=== PATIENT | female | born 1985 | race Caucasian/White ===

== ENCOUNTER 2023-07-15 13:42 | Observation (INO) ==
[2023-07-15] MEDS: MoRPHine SULFATE 10 MG/ML CARP/VIAL IM STA (14:06)
--- NOTE | 2023-07-15 14:08 | History & Physical Report ---
Date of Service July 15, 2023 Assessment & Plan (1) Right renal stone: Plan: Patient's clinical presentation most c/w R stone. Will get labs, imaging. Obstetric causes of pain unlikely as unilateral presentation, pain waves do not correlate with contractions, and no current evidence of PTL or abruption. Offered IM morphine for relief of acute, extreme pain without awaiting IV placement, and patient accepts. IV also to be established for hydration and ongoing pain management needs. History of Present Illness Primary Care Provider: Emigdio Tirado MD 37yo with prior term , currently at 22w5d with healthy SIUP. Presents with 1.5 hours prior acute onset of R mid back to flank pain, radiating around her side towards the front. Although it baselines at a 5/10 she then gets "waves" or "spikes" of pain to a 10/10, and is crying on arrival with statements that this pain is way worse than contractions with her previous . At its peak this is the worst pain of her life. She has no timeable contractions (her peaks of pain are irregular and unpredictable) and no VB, no LOF. FM present. Has not had prior renal or gall stones, has not seen hematuria. Currently the wait in our ER is quite long, and patient was therefore brought directly to L&D despite likely being a nonobstetric issue, in order to expedite workup and treatment. Allergies Allergy/AdvReac Type Severity Reaction Status Date / Time amoxicillin Allergy Intermediate SWELLING, Verified 06/27/23 15:56 HIVES cefprozil Allergy Intermediate RASH Verified 06/27/23 15:56 cefuroxime Allergy Intermediate RASH Verified 06/27/23 15:56 clavulanic acid Allergy Intermediate SWELLING, Verified 06/27/23 15:56 HIVES Penicillins Allergy Intermediate Hives Verified 06/27/23 15:56 tuberculin, purified protein Allergy Intermediate swelling Verified 06/27/23 15:56 deriva fexofenadine AdvReac Intermediate dizziness Verified 06/27/23 15:56 BETALACTAMASEIN Allergy Intermediate SWELLING, Uncoded 06/27/23 15:56 HIVES Home Medications Medication Instructions Recorded Confirmed Type PNV 153-FA 400 mcg-om3 35 mg-dha 1 tab PO DAILY 06/08/23 06/27/23 History 25 mg-epa 5 mg-fish oil chew tablet ( Gummies) levothyroxine 50 mcg tablet 50 mcg PO DAILYBB 06/08/23 06/27/23 History albuterol sulfate 90 mcg/actuation 1 inh inhalation DIRECTED PRN 06/15/23 06/27/23 History aerosol inhaler Shortness Of Breath Or Wheezing omeprazole 20 mg capsule,delayed 20 mg PO BID 06/15/23 06/27/23 History release Past Med/Surg History Medical History Psoriasis Eczema History of chicken pox No acute medical problems Surgical History S/P section S/P myringotomy with insertion of tube S/P wisdom tooth extraction Family History Grandfather (Paternal) Diabetes Uncle Heart disease maternal Mother Hypertension Hypothyroid Father Dyslipidemia Denies family history of Ovarian cancer Breast cancer Colorectal cancer Social History Smoking Status: Never smoker Do You Dip or Chew Tobacco: No; Preferred Language: Greenlandic marital status: Single marital status details: david Ellis (37) [phone] Current Living Situation: Family and Significant Other Current Living Situation Comment: lives with fob, son, no pets current occupational status: 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 CVA +++TTP on R side, patient states this exactly reproduces her worst pain. Skin: Patient is diaphoretic c/w stated pain level. Genitourinary: FHT AGA per RN Mcgu[facility] [place] quiet with maternal movement artifact Palpation of abdomen during wave of peak pain shows uterine tone is low Cvx: cl/th/hi No VB or LOF evident PG Care Time/CCT Total # of Minutes Spent Total Time Spent with Patient: Total time spent is greater than 50% in coordination of care (as documented) at patient's floor/unit and/or counseling patient: Coding Level of Care Code None Diagnoses Right renal stone N20.0
[2023-07-15] MEDS: SODIUM CHLORIDE 0.9% 1,000 ML IV SCH ×2 (14:14→19:03)
[2023-07-15 14:21] LABS: Basophils # (auto) 0.03 K/uL (0.00-0.20); Basophils % (auto) 0.2 %; Eosinophils % (auto) 0.7 %; Hematocrit (blood only) 37.5 % (37.0-47.0); Hemoglobin 12.5 g/dl (12.0-16.0); Immature Granulocytes # (auto) 0.11 K/uL (0.01-0.20); Immature Granulocytes % (auto) 0.7 %; Lymphocytes # (auto) 1.56 K/uL (1.20-3.40); Lymphocytes % (auto) 10.4 %; Mean Corpuscular Hemoglobin 31.2 pg (25.0-34.0); Mean Corpuscular Hgb Conc 33.3 g/dL (32.0-36.0); Mean Corpuscular Volume 93.5 fL (80.0-100.0); Mean Platelet Volume 9.8 fL (9.4-12.4); Monocytes # (auto) 0.74 K/uL (0.11-0.59); Monocytes % (auto) 4.9 %; Neutrophils # (auto) 12.53 K/uL (1.40-6.50); Neutrophils % (auto) 83.1 %; Platelet Count 245 K/uL (130-400); RDW Coefficient of Variation 13.4 % (11.5-14.5); RDW Standard Deviation 45.7 fL (36.4-46.3); Red Blood Count 4.01 M/uL (4.20-5.40); White Blood Count 15.07 K/ul (4.8-10.8)
[2023-07-15 14:30] LABS: Appearance Urine Clear (Clear); Bacteria Urine Automated Negative (Negative); Bilirubin Urine Negative (Negative); Blood Urine Trace (Negative); Color Urine Yellow; Epithelial Cell Urine Auto >30 /lpf (0-5); Glucose Urine UA Negative (Negative); Ketones Urine Trace (Negative); Leukocyte Esterase Urine Negative (Negative); Nitrite Urine Negative (Negative); Protein Urine Negative (Negative); RBC Urine Automated 0-4 /hpf (0-4); Specific Gravity Urine 1.023 (1.000-1.030); Urobilinogen Urine Negative (Negative); pH Urine 5.5 (4.5-7.5)
[2023-07-15 14:37] LABS: Albumin Globulin Ratio 1.1 (0.9-2); Albumin Level 3.7 gm/dl (3.4-5.0); BUN Creatinine Ratio 14.7 (10-20); Bilirubin,Total 0.5 mg/dl (0.2-1.0); Calcium 8.9 mg/dl (8.6-10.3); Creatinine Clr Calc Pharmacy 109.2 ml/min; Est GFR (African American) 119.7 ml/min; Est GFR (Non-African American) 103.3 ml/min; Globulin 3.3 gm/dl (2.5-4.0); Potassium 3.5 mmol/L (3.5-5.1)
[2023-07-15] MEDS: ONDANSETRON INJ 2 MG/ML 2 ML VIAL ONE (15:48)
[2023-07-15] MEDS: ACETAMINOPHEN 325 MG TAB PO PRN (16:05)
--- NOTE | 2023-07-15 16:09 | Ultrasound Report ---
ULTRASOUND KIDNEYS AND BLADDER CLINICAL HISTORY: Right flank pain. . COMPARISON STUDY: No priors TECHNIQUE: Real-time, grayscale, and color flow sonography of the kidneys and bladder is performed. I mages are reviewed in the transverse and longitudinal planes. FINDINGS: Kidneys: The kidneys are normal in size and echotexture. The right kidney measures 13.5 x 5.2 x 4.5 c m and the left kidney measures 13.7 x 5.6 x 5.3 cm. There is mild right-sided hydronephrosis. No hydr onephrosis is seen on the lateral. No shadowing renal calculi are identified. There is no sonographic evidence of contour deforming renal mass lesion. No perinephric fluid is identified. Bladder: The bladder is normal in appearance. Bilateral ureteral jets were seen. Pelvis: There is a single live intrauterine gestation with a heart rate of 167 bpm. IMPRESSION: 1. There is mild right-sided hydronephrosis. No shadowing calculi are identified and a right ureteral jet was seen. An obstructing ureteral stone cannot be excluded. This could also be related to mass e ffect from the gravid uterus. 2. No hydronephrosis is seen on the left. 3. The bladder is normal as imaged. ACT 112: Negative or not required by law. Electronically signed by: Reed Castro M.D. 07/15/2023 4:08 PM
--- NOTE | 2023-07-15 16:43 | Obstetrical Progress Note ---
Date of Service July 15, 2023 Assessment & Plan (1) Right renal stone: Plan: patient with reassuring obstetric findings. Clinical impression of R renal colic. Both her presentation and her labs are highly suspicious for stone, but a stone cannot be demonstrated thus far using ultrasound modality. Patient currently declines CT to further demonstrate or rule out stone. There are minimal concerns at this time for UTI, Gallstone or Cholelithia sis/cholecystis, obstetric concern, nor bowel-related etiology of her pain. Obstruction of the R ureter cannot be r/o based on the tests done so far, but suspicion of this is currently low as the hydronephrosis is mild and her pain has been manageable with appropriate medication doses. We will keep her inpatient overnight for observation. So long as she does not develop signs or symptoms of another condition, and so long as her pain is manageable, the diagnosis will remain presumed R ureteral stone without obstruction. The goal will be to transition to outpatient management with PO percocet and aggressive oral hydration. Patient is going to strain her urine. She is aware we have only a presumptive diagnosis, but declines the definitive diagnostic study for now due to the radiation exposure inherent with that modality. CT will be re-offered in the event that clinical concerns for obstruction arise, or that the diagnosis seems less clear with passage of time. Subjective Patient with improvement of pain after morphine from 10/10 to 3/10. Eventually worsened back to a 5/10 and received tylenol as it was too soon for more narcotic, and she did well with the tylenol. Back to a 3/10 now and says if it were like this all the time she'd be fine, she just fears the peaks of severe pain. Additional history obtained/confirmed: Patient denies fevers or chills, has had no recent bowel habit changes, no upper abdominal pain, no history of gallstones, no recent large or fatty food ingestions. Today she ate a banana an d a cup of coffee prior to the onset of her pain and her presentation to the hospital. The pain hit her "like lightning, out of the blue" and came in peaks of varying durations. Right now she says she is in between peaks and has a tolerable level of pain. She mentions a few times that when she does get the pain it is very sharp and located in one specific spot on her R side, pointing to a spot on her flank. Labs and imaging reviewed, and patient made aware of her results. 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 Patient with mild leukocytosis and L shift, normal creatinine, normal LFT's. Her UA shows trace blood and ketones without bacteria nor nitrites/LE. The ultrasound shows mild R hydronephrosis without visible stone, and ureteral jet noted but obstruction is nevertheless still a possibility. I also called Dr. Sanches as the on-call urologist to run the above findings by him. He supports that her WBC/UA, symptoms, and imaging could all be consistent with a ureteral stone, and that ultrasound has low sensitivity for these during when the ureteral course is hidden behind the uterus. Her pain pattern and US yield high clinical suspicion. The imaging modality required to truly identify a stone would be a noncontrast CT. In the event that a stone is confirmed, the current treatment offerings at [facility] are essentially limited to hydration and pain management to pass the stone; surgical interventions for stone during generally require transfer to a higher level of care. I discussed this with the patient, and at this time she is hesitant to undergo CT to clarify the presence and location of a stone due to the radiation exposure to her fetus. Physical Exam Physical Exam: Sitting back / resting on the bed, no longer bracing herself on her hands. No longer diaphoretic. Able to speak with normal pace and tone. Remains gravid AGA. Has been straining urine, nothing caught yet. Results & Data Vital Signs (Past 12 Hours) Vital Signs Temp Pulse Resp BP 07/15/23 14:26 68 109/72 07/15/23 14:05 97.9 F 20 158/60 H 07/15/23 13:48 71 07/15/23 13:47 20 07/15/23 13:47 97.9 F 20 158/60 H PG Care Time/CCT Total # of Minutes Spent Total Time Spent with Patient: Total time spent is greater than 50% in coordination of care (as documented) at patient's floor/unit and/or counseling patient: Coding Level of Care Code None Diagnoses Right renal stone N20.0
[2023-07-15] MEDS ORDERED: ONDANSETRON INJ 2 MG/ML 2 ML VIAL IV PRN (17:12)
[2023-07-15] MEDS ORDERED: oxyCODONE/ACETAMINOPHEN 5mg/325mg TAB PO PRN (17:15)
[2023-07-15] MEDS ORDERED: MoRPHine SULFATE 2 MG/ML CARP IV PRN (17:16)
[2023-07-15] MEDS: ACETAMINOPHEN 500 MG TAB ONE (17:23)
[2023-07-15] MEDS: oxyCODONE/ACETAMINOPHEN 5mg/325mg TAB PO PRN (18:43)
[2023-07-15] MEDS ORDERED: Nursing to Pharmacy Communication SCH (18:45)
[2023-07-15] MEDS: PANTOprazole 40 MG TAB PO SCH (20:18)
[2023-07-16] MEDS: LEVOTHYROXINE SODIUM 50 MCG TABLET PO SCH (06:06)
[2023-07-16 06:38] LABS: Basophils # (auto) 0.03 K/uL (0.00-0.20); Basophils % (auto) 0.3 %; Eosinophils % (auto) 1.9 %; Hematocrit (blood only) 30.2 % (37.0-47.0); Hemoglobin 10.2 g/dl (12.0-16.0); Immature Granulocytes # (auto) 0.05 K/uL (0.01-0.20); Immature Granulocytes % (auto) 0.5 %; Lymphocytes # (auto) 1.93 K/uL (1.20-3.40); Lymphocytes % (auto) 18.3 %; Mean Corpuscular Hemoglobin 31.5 pg (25.0-34.0); Mean Corpuscular Hgb Conc 33.8 g/dL (32.0-36.0); Mean Corpuscular Volume 93.2 fL (80.0-100.0); Mean Platelet Volume 10.3 fL (9.4-12.4); Monocytes # (auto) 0.79 K/uL (0.11-0.59); Monocytes % (auto) 7.5 %; Neutrophils # (auto) 7.55 K/uL (1.40-6.50); Neutrophils % (auto) 71.5 %; Platelet Count 202 K/uL (130-400); RDW Coefficient of Variation 13.8 % (11.5-14.5); RDW Standard Deviation 46.5 fL (36.4-46.3); Red Blood Count 3.24 M/uL (4.20-5.40); White Blood Count 10.55 K/ul (4.8-10.8)
[2023-07-16 07:11] LABS: Appearance Urine Turbid (Clear); Bacteria Urine Automated Negative (Negative); Bilirubin Urine Negative (Negative); Blood Urine Negative (Negative); Cast Urine Automated 0 /lpf (0-5); Color Urine Yellow; Glucose Urine UA Negative (Negative); Ketones Urine Negative (Negative); Leukocyte Esterase Urine Negative (Negative); Nitrite Urine Negative (Negative); Protein Urine Negative (Negative); RBC Urine Automated 0-4 /hpf (0-4); Specific Gravity Urine 1.011 (1.000-1.030); Urobilinogen Urine Negative (Negative); WBC Urine Automated 0 /hpf (0-5)
--- NOTE | 2023-07-16 08:26 | Obstetrical Progress Note ---
Date of Service July 16, 2023 Assessment & Plan (1) Right renal stone: Plan: Clinically dx with passing of R renal stone. Likely stone is now in bladder given the descending location and then resolution of pain without passage of visible stone yet. Continue aggressive hydration at home. Received IV fluids here and has hemodilutional changes, but likely genuine improvement in WBC Urinalysis this AM shows resolution of previously-seen microscopic hematuria Continue routine PNC. Admission and Anticipated Discharge Date Admission Date: July 15, 2023 Subjective 37yo at 22w6d with presumed R renal stone. No OB c/o. Overnight the patient's pain moved down along the R flank into the R groin and then disappeared. Has not required narcotic since yesterday late evening. Aware that stone is likely in bladder and may yet pass, with additional pain, so is willing to have Rx for percocet prn. Doing well this morning and feels ready for D/C. Physical Exam Physical Exam: In NAD, talking with friend, sitting semi-sorensen. Results & Data Vital Signs (Past 12 Hours) Vital Signs Temp Pulse Resp BP Pulse Ox O2 Del Method 07/16/23 07:45 98.2 F 73 16 119/74 98 Room Air 07/16/23 02:58 98.2 F 74 18 97/64 L 97 Room Air 07/15/23 22:58 98.2 F 71 18 100/63 98 Room Air Laboratory Results Laboratory Results - last 24 hr 07/15/23 07/15/23 07/16/23 13:59 Unknown 06:01 WBC 15.07 H 10.55 RBC 4.01 L 3.24 L Hgb 12.5 10.2 L Hct 37.5 30.2 L MCV 93.5 93.2 MCH 31.2 31.5 MCHC 33.3 33.8 RDW Std Deviation 45.7 46.5 H RDW Coeff of Nuno 13.4 13.8 Plt Count 245 202 MPV 9.8 10.3 Immature Gran % (Auto) 0.7 0.5 Neut % (Auto) 83.1 71.5 Lymph % (Auto) 10.4 18.3 Hawkins % (Auto) 4.9 7.5 Eos % (Auto) 0.7 1.9 Baso % (Auto) 0.2 0.3 Neut # (Auto) 12.53 H 7.55 H Lymph # (Auto) 1.56 1.93 Hawkins # (Auto) 0.74 H 0.79 H Eos # (Auto) 0.10 0.20 Baso # (Auto) 0.03 0.03 Immature Gran # (Auto) 0.11 0.05 Sodium 136 Potassium 3.5 Chloride 106 Carbon Dioxide 20 L Anion Gap 10 BUN 11 Creatinine 0.75 Est Cr Clr Drug Dosing 109.2 Est GFR ( Amer) 119.7 Est GFR (Non-Af Amer) 103.3 BUN/Creatinine Ratio 14.7 Glucose 85 Calcium 8.9 Total Bilirubin 0.5 AST 19 ALT 26 Alkaline Phosphatase 54 Total Protein 7.0 Albumin 3.7 Globulin 3.3 Albumin/Globulin Ratio 1.1 Urine Color Yellow Urine Appearance Clear Urine pH 5.5 Ur Specific [place] 1.023 Urine Protein Negative Urine Glucose (UA) Negative Urine Ketones Trace H Urine Blood Trace H Urine Nitrite Negative Urine Bilirubin Negative Urine Urobilinogen Negative Ur Leukocyte Esterase Negative Urine WBC (Auto) 1-5 Urine RBC (Auto) 0-4 U Hyaline Cast (Auto) 1-5 U Epithel Cells (Auto) >30 H Urine Bacteria (Auto) Negative 07/16/23 06:30 WBC RBC Hgb Hct MCV MCH MCHC RDW Std Deviation RDW Coeff of Nuno Plt Count MPV Immature Gran % (Auto) Neut % (Auto) Lymph % (Auto) [place] % (Auto) Eos % (Auto) Baso % (Auto) Neut # (Auto) Lymph # (Auto) Hawkins # (Auto) Eos # (Auto) Baso # (Auto) Immature Gran # (Auto) Sodium Potassium Chloride Carbon Dioxide Anion Gap BUN Creatinine Est Cr Clr Drug Dosing Est GFR ( Amer) Est GFR (Non-Af Amer) BUN/Creatinine Ratio Glucose Calcium Total Bilirubin AST ALT Alkaline Phosphatase Total Protein Albumin Globulin Albumin/Globulin Ratio Urine Color Yellow Urine Appearance Turbid A Urine pH 7.0 Ur Specific [place] 1.011 Urine Protein Negative Urine Glucose (UA) Negative Urine Ketones Negative Urine Blood Negative Urine Nitrite Negative Urine Bilirubin Negative Urine Urobilinogen Negative Ur Leukocyte Esterase Negative Urine WBC (Auto) 0 Urine RBC (Auto) 0-4 U Hyaline Cast (Auto) 0 U Epithel Cells (Auto) 5-10 H Urine Bacteria (Auto) Negative PG Care Time/CCT Total # of Minutes Spent Total Time Spent with Patient: Total time spent is greater than 50% in coordination of care (as documented) at patient's floor/unit and/or counseling patient: Coding Level of Care Code None Diagnoses Right renal stone N20.0
== END 2023-07-16 10:40 | disposition home or self-care (01) ==
LOC: 4E2 13:42 → OPB 13:42 → 4S1 13:47 → 4E2 18:49

== ENCOUNTER 2023-11-10 08:50 | Inpatient (IN) ==
--- NOTE | 2023-10-25 16:08 | Anesthesiology Consultation ---
Date of Service October 25, 2023 Assessment & Plan (1) Encounter for pre-operative examination: Infectious disease screening: Per assessment on 10/25/23: No known infectious disease contacts or current infectious disease symptoms. No noted recent Covid positive test result. Chart Review Chart Review: order entry technician initiated History Surgery Operation Date: 11/10/23 10:05 Proposed Procedures p Section (Delivery of Baby Through Abdominal Incision) - America Mackenzie MD, FACOG s with Bilateral Tubal Ligation - America Mackenzie MD, FACOG Height/Weight Height: 5 ft 1 in Weight: 100.244 kg Allergies Allergy/AdvReac Type Severity Reaction Status Date / Time bee venom protein (honey bee) Allergy Severe "Extreme Verified 10/25/23 16:03 swelling" amoxicillin Allergy Intermediate Swelling, Verified 10/25/23 16:03 hives cefprozil Allergy Intermediate Rash Verified 10/25/23 16:03 cefuroxime Allergy Intermediate Rash Verified 10/25/23 16:05 clavulanic acid Allergy Intermediate Swelling, Verified 10/25/23 16:05 hives Penicillins Allergy Intermediate Hives Verified 10/25/23 15:30 tuberculin, purified protein Allergy Intermediate Swelling Verified 10/25/23 16:05 deriva fexofenadine AdvReac Intermediate Dizziness Verified 10/25/23 16:05 Medications Home Medications Medication Instructions Recorded Confirmed Last Taken levothyroxine 50 mcg tablet 50 mcg PO QAM 06/08/23 10/25/23 07/15/23 06:30 albuterol sulfate 90 mcg/actuation 1 inh inhalation DIRECTED PRN 06/15/23 10/25/23 07/02/23 20:30 aerosol inhaler Shortness Of Breath Or Wheezing omeprazole 20 mg capsule,delayed 20 mg PO QAM 06/15/23 10/25/23 07/14/23 05:00 release vit no.133-ferrous 1 tab PO DAILY 07/15/23 10/25/23 07/14/23 21:00 fumarate 28 mg-folic acid 800 mcg tablet () Past Medical History Medical History Anxiety COVID-19 Entered to PMX 2020 Eczema Exercise-induced asthma GERD (gastroesophageal reflux disease) History of kidney stones no surgical intervention Hypothyroidism Psoriasis Past Family History Family History Grandfather (Paternal) Diabetes Uncle Heart disease maternal Mother Hypothyroid Hypertension Father Dyslipidemia Other No family history of adverse response to anesthesia Denies family history of Ovarian cancer Breast cancer Colorectal cancer Past Surgical History Surgical History History of myringotomy S/P section 2014 [place] teeth removed Social History Smoking Status: Never smoker Do You Dip or Chew Tobacco: No Hx Alcohol Use: No Hx Substance Use: No substance use type: does not use Lab Results Anesthesia Preop Results Results Anesthesia Widget: TSH 1.334 uIu/ml (0.300-4.500) 09/08/23
--- NOTE | 2023-11-10 09:14 | History & Physical Report ---
Date of Service November 10, 2023 Assessment & Plan (1) Previous section: (2) Group B streptococcal infection during : Plan 38 y/o at 39 weeks and 3 days of gestational age here for a repeat C- section - To OR for c section this am - tracing cat 1 Admission and Anticipated Discharge Date Admission Date: November 10, 2023 History of Present Illness Primary Care Provider: Emigdio Tirado MD 38 y/o at 39 weeks and 3 days of gestational age. Here for a repeat C- section. Complications with this included hypothyroidism, AMA and GBS positive. Has been attending OB appointments regularly. Currently taking no medications. GBS positive, Rubella Immune, BTG: A Positive Contractions: none. Fluid or Blood loss: none Movement: active FHR baseline 140, moderate variability, accelerations present, decelerations absent OB Labs: Blood Type A Positive 04/06/23 Antibody Screen NEGATIVE 04/06/23 Hemoglobin 11.6 g/dl (12.0-16.0) L 08/18/23 Hematocrit 36.3 % (37.0-47.0) L 08/18/23 Mean Corpuscular Volume 93.2 fL (80.0-100.0) 07/16/23 Platelet Count 202 K/uL (130-400) 07/16/23 Rubella IgG Antibody Immune (Immune) 04/06/23 Rapid Plasma Reagin Nonreactive (Nonreactive) 04/06/23 Hepatitis B Surface Antigen. NON-REACTIVE (NON-REACTIVE) 04/06/23 Hepatitis C Antibody (EIA) NON-REACTIVE (NON-REACTIVE) 04/06/23 HIV (1&2) Ag and Ab Confirmation NON-REACTIVE (NON-REACTIVE) 04/06/23 Glucose 1 Hour 50 gm Load 137 mg/dl (70-130) H 06/01/23 OB Optional Labs: Chlamydia trachomatis RNA Not Detected (NotDetected) 04/06/23 Neisseria gonorrhoeae RNA Not Detected (NotDetected) 04/06/23 Thyroid Stimulating Hormone (TSH) 1.334 uIu/ml (0.300-4.500) 09/08/23 Allergies Allergy/AdvReac Type Severity Reaction Status Date / Time bee venom protein (honey bee) Allergy Severe "Extreme Verified 11/10/23 10:05 swelling" amoxicillin Allergy Intermediate Swelling, Verified 11/10/23 10:05 hives cefprozil Allergy Intermediate Rash Verified 11/10/23 10:05 cefuroxime Allergy Intermediate Rash Verified 11/10/23 10:05 clavulanic acid Allergy Intermediate Swelling, Verified 11/10/23 10:05 hives Penicillins Allergy Intermediate Hives Verified 11/10/23 10:05 tuberculin, purified protein Allergy Intermediate Swelling Verified 11/10/23 10:05 deriva fexofenadine AdvReac Intermediate Dizziness Verified 11/10/23 10:05 Home Medications Medication Instructions Recorded Confirmed Type levothyroxine 50 mcg tablet 50 mcg PO QAM 06/08/23 11/10/23 History albuterol sulfate 90 mcg/actuation 1 inh inhalation DIRECTED PRN 06/15/23 11/09/23 History aerosol inhaler Shortness Of Breath Or Wheezing omeprazole 20 mg capsule,delayed 20 mg PO QAM 06/15/23 11/10/23 History release vit no.133-ferrous 1 tab PO DAILY 07/15/23 11/10/23 History fumarate 28 mg-folic acid 800 mcg tablet () Patient History Medical History Anxiety COVID-19 Entered to PMHX 2020 Eczema Exercise-induced asthma GERD (gastroesophageal reflux disease) History of kidney stones no surgical intervention Hypothyroidism Psoriasis Surgical History History of myringotomy S/P section 2015 [place] teeth removed Family History Grandfather (Paternal) Diabetes Uncle Heart disease maternal Mother Hypothyroid Hypertension Father Dyslipidemia Other No family history of adverse response to anesthesia Denies family history of Ovarian cancer Breast cancer Colorectal cancer Social History Smoking Status: Never smoker Second Hand Exposure: No; Do You Dip or Chew Tobacco: No; Hx Alcohol Use: No Hx Substance Use: No Preferred Language: Tuvaluan Communication Ability: Effective Concrete Vibrator Operator Required: No Beliefs That Will Affect Care: None marital status: Single marital status details: david Stepanjesuslourdes Caleb (37) [phone] Current Living Situation: Family Current Living Situation Comment: SO and son current occupational status: employed current occupation: [employer] Other Information That Helps Us Care for You: No Feels Safe at Home: Yes Safety Concerns: Feels Safe At This Time Assistive Devices: None Review of Systems as per HPI Physical Exam Physical Exam: General: patient resting comfortably, NAD, non-toxic in appearance, AA&O x 4, answers questions appropriately. Heart: +S1/S2, regular, no m/r/g Lungs: equal air entry bilaterally, no rales/rhonchi/wheezes Abd: +BS, soft, NT/ND, gravid uterus Ext: warm, no clubbing/cyanosis or edema Neuro: nonfocal, patient AA&O x 4, speech intact, no facial droop, moving all extremities on command. Supervising Physician Co-Signing Physician Notes Resident Physician Supervision Note: I interviewed and examined the patient. Discussed with [Name of resident] and agree with findings and plan as documented in the note. Any exceptions or clarifications are listed here: [None] Documented By: America Mackenzie MD, FACOG Resident Activity Tracking Resident Involvement: Resident Care Provided Care Provided: OB Delivery
[2023-11-10] MEDS: LACTATED RINGER'S 1,000 ML IV SCH ×2 (09:45→17:51)
[2023-11-10 09:52] LABS: Basophils # (auto) 0.03 K/uL (0.00-0.20); Basophils % (auto) 0.3 %; Eosinophils % (auto) 0.9 %; Hematocrit (blood only) 39.3 % (37.0-47.0); Hemoglobin 13.5 g/dl (12.0-16.0); Immature Granulocytes # (auto) 0.07 K/uL (0.01-0.20); Immature Granulocytes % (auto) 0.6 %; Lymphocytes # (auto) 1.61 K/uL (1.20-3.40); Lymphocytes % (auto) 14.9 %; Mean Corpuscular Hemoglobin 31.2 pg (25.0-34.0); Mean Corpuscular Hgb Conc 34.4 g/dL (32.0-36.0); Mean Corpuscular Volume 90.8 fL (80.0-100.0); Mean Platelet Volume 11.3 fL (9.4-12.4); Monocytes # (auto) 0.72 K/uL (0.11-0.59); Monocytes % (auto) 6.7 %; Neutrophils # (auto) 8.28 K/uL (1.40-6.50); Neutrophils % (auto) 76.6 %; Platelet Count 236 K/uL (130-400); RDW Coefficient of Variation 13.5 % (11.5-14.5); RDW Standard Deviation 44.7 fL (36.4-46.3); Red Blood Count 4.33 M/uL (4.20-5.40); White Blood Count 10.81 K/ul (4.8-10.8)
[2023-11-10] MEDS ORDERED: OXYTOCIN 10 UNITS/ML VIAL ONE (12:31)
[2023-11-10] MEDS ORDERED: ONDANSETRON INJ 2 MG/ML 2 ML VIAL ONE (12:31)
[2023-11-10] MEDS ORDERED: DEXAMETHASONE SOD INJ 4 MG/ML VIAL ONE (12:31)
[2023-11-10] MEDS ORDERED: PHENYLEPHRINE HCL 25 MG/250 ML NSS IV ONE (12:31)
[2023-11-10] MEDS ORDERED: MoRPHine SULFATE PF 1 MG/ML 10 ML AMP/VIAL ONE (12:31)
[2023-11-10] MEDS ORDERED: MEPERIDINE HCL 25 MG/ML CARP/VIAL IV PRN (12:45)
[2023-11-10] MEDS ORDERED: DC INTRASPINAL MORPHINE SCH (12:45)
[2023-11-10] MEDS ORDERED: ePHEDrine sulfate 50 MG/ML AMP IV PRN (12:45)
[2023-11-10] MEDS ORDERED: NALOXONE HCL 1 MG in SODIUM CHLORIDE 0.9% 1,000 ML IV PRN (12:45)
[2023-11-10] MEDS ORDERED: MoRPHine SULFATE PF 1 MG/ML 10 ML AMP/VIAL INT SPINAL ONE (12:45)
[2023-11-10] MEDS ORDERED: NALOXONE HCL 0.4 MG/1 ML VIAL/CARP IV PRN (12:45)
[2023-11-10] MEDS ORDERED: MoRPHine SULFATE 2 MG/ML CARP IV PRN (12:45)
[2023-11-10] MEDS ORDERED: NALOXONE HCL 0.08 MG in SYRINGE 1.8 ML IV PRN (12:45)
[2023-11-10] MEDS ORDERED: NALBUPHINE HCL 5 MG in SYRINGE 0 ML IV PRN (12:45)
[2023-11-10] MEDS ORDERED: LACTATED RINGER'S 500 ML IV PRN (12:45)
[2023-11-10] MEDS ORDERED: diphenhydrAMINE 50 MG/ML VIAL IV PRN (12:45)
[2023-11-10] MEDS ORDERED: SODIUM CHLORIDE 0.9% 1,000 ML IV SCH (12:45)
[2023-11-10] MEDS ORDERED: NO NARCOTICS OR SEDATIVES SCH (12:45)
[2023-11-10] MEDS ORDERED: HYDROmorphone INJ 0.5 MG/0.5 ML SYR IV PRN (12:45)
--- NOTE | 2023-11-10 12:45 | Anesthesiology Consultation ---
Date of Service November 10, 2023 Assessment & Plan Chart Review Chart Review: Acceptable Risk for Surgery and Patient NOT seen in Pre Admission Testing Consults Requested none ASA ASA2 Proposed Anesthesia Anesthesia Type: Spinal (+intrathecal narcotics) Risk / Benefits Reviewed With: PT / POA / Parent / Guardian, Accepts Plan and Informed Consent Obtained History Surgery Operation Date: 11/10/23 11:10 Proposed Procedures p Section - America Mackenzie MD, FACOG s with Bilateral Tubal Ligation - America Mackenzie MD, FACOG Height/Weight Height: 5 ft 1 in Weight: 102.512 kg Allergies Allergy/AdvReac Type Severity Reaction Status Date / Time bee venom protein (honey bee) Allergy Severe "Extreme Verified 11/10/23 10:05 swelling" amoxicillin Allergy Intermediate Swelling, Verified 11/10/23 10:05 hives cefprozil Allergy Intermediate Rash Verified 11/10/23 10:05 cefuroxime Allergy Intermediate Rash Verified 11/10/23 10:05 clavulanic acid Allergy Intermediate Swelling, Verified 11/10/23 10:05 hives Penicillins Allergy Intermediate Hives Verified 11/10/23 10:05 tuberculin, purified protein Allergy Intermediate Swelling Verified 11/10/23 10:05 deriva fexofenadine AdvReac Intermediate Dizziness Verified 11/10/23 10:05 Medications Home Medications Medication Instructions Recorded Confirmed Last Taken levothyroxine 50 mcg tablet 50 mcg PO QAM 06/08/23 11/10/23 11/09/23 07:00 albuterol sulfate 90 mcg/actuation 1 inh inhalation DIRECTED PRN 06/15/23 11/09/23 07/02/23 20:30 aerosol inhaler Shortness Of Breath Or Wheezing omeprazole 20 mg capsule,delayed 20 mg PO QAM 06/15/23 11/10/23 11/09/23 07:00 release vit no.133-ferrous 1 tab PO DAILY 07/15/23 11/10/23 11/09/23 18:00 fumarate 28 mg-folic acid 800 mcg tablet () Past Medical History Medical History Anxiety COVID-19 Entered to PMX 2020 Eczema Exercise-induced asthma GERD (gastroesophageal reflux disease) History of kidney stones no surgical intervention Hypothyroidism Psoriasis Exercise / Class Metabolic Activity II 4-5 Yardwork/Stairs/Walk up hill Past Family History Family History Grandfather (Paternal) Diabetes Uncle Heart disease maternal Mother Hypothyroid Hypertension Father Dyslipidemia Other No family history of adverse response to anesthesia Denies family history of Ovarian cancer Breast cancer Colorectal cancer Past Surgical History Surgical History History of myringotomy S/P section 2015 [place] teeth removed Past Anesthesia History No Hx of Anesthesia Complications and No Family Hx of Anesthesia Complications History of PONV No Hx of PONV and No Hx of Motion Sickness Social History Smoking Status: Never smoker Do You Dip or Chew Tobacco: No Hx Alcohol Use: No Hx Substance Use: No substance use type: does not use Physical Exam Vital Signs Last Vital Signs Temp 36.4 C L 11/10/23 09:38 Pulse 62 11/10/23 11:32 Resp 20 11/10/23 09:38 BP 120/75 11/10/23 11:32 ENMT Mouth: no dentition abnormality Thyromental Distance: > or= 3.5 Finger Breadths Mallampati Class: II Neck normal visual inspection Respiratory normal respiratory effort Auscultation: lungs clear to auscultation bilaterally Cardiovascular Rate/Rhythm: regular rate and regular rhythm Psychiatric Orientation: alert Testing Laboratory Results 11/10/23 09:19 Blood Type A Positive 11/10/23 09:19 Antibody Screen NEGATIVE 11/10/23 09:19
[2023-11-10] MEDS ORDERED: SODIUM CHLORIDE 0.9% 250 ML IV PRN (13:10)
[2023-11-10] MEDS: CITRIC ACID/SODIUM CITRATE 15 ML UDC ONE (14:01)
[2023-11-10] MEDS: ceFAZolin 2000MG 2,000 MG/15 ML SYR IV SCH (14:15)
--- NOTE | 2023-11-10 15:29 | Operative Report ---
PG Post Operative Report Pre & Post Diagnosis Operation Date: 11/10/23 11:10 Pre-Op Diagnosis: History previous section Desires permanent sterilization Post-Op Diagnosis: Same I identified the patient and participated in the time-out.: Yes Procedure Operation Date: 11/10/23 11:10 Actual Procedures p Section in LD for live female infant and bilateral salpingectomy at 1448 - Amercia Mackenzie MD, FACOG Surgeon America Mackenzie MD, FACOG Community [employer] Educator Dr. Soto Estimated Blood Loss 331 Findings Consistent with Post-Op Diagnosis Specimens Cord gases bilateral fallopian tubes Description of Procedure Regional anesthetic had been given by anesthesia patient was prepped and draped with a leftward tilt preoperative antibiotics had been given in appropriate timing by anesthesiology. Once the prep was allowed to fully dry timeout was performed. Pickups with teeth were used to test the incision area was found to be adequate for incision as the patient did not feel sharp pain. Scalpel was used to make a Pfannenstiel incision on the lower abdomen. We then cut through the subcutaneous fat down to the level of the anterior rectus sheath fascia this was cut in the midline and then extended laterally with the curved Rangel scissors. At this stage we then placed 2 Jair clamps on the anterior aspect of the fascia. Using the curved Rangel's we are able to dissect the fascia superiorly away from the rectus muscles. Care was taken to maintain hemostasis. Jair clamps were then placed to the inferior aspect of the anterior sheath of the fascia. Fascia was then dissected away from the rectus muscles inferiorly towards the pubic bone. A Jair was then placed in the midline both inferiorly and superiorly. This was to allow exposure by retraction rectus muscles were in the midline with were then able to cut through the peritoneum and then enter the peritoneal cavity. Opening was enlarged to allow exposure of the peritoneal cavity both superiorly and inferiorly. Once adequate space was obtained a bladder retractor was placed to expose the lower segment Metzenbaums were used to dissect the bladder flap inferiorly away from the uterus. This was done sharply bladder retractor was then repositioned to expose the lower segment of the uterus Fresh scalpel was used to make a low transverse incision on the uterus. Uterus was then entered bluntly with the operators finger, membranes ruptured and the opening was enlarged using the operators fingers bluntly pulling superiorly and inferiorly to allow exposure. Baby was delivered by first flexion of the head elevation of the head out of the pelvis and then pressure by the billing and accounting staff assistant on the maternal abdomen. Baby's head was then delivered mouth and then nares were suctioned and then using gentle traction the baby was fully delivered. Live vigorous infant. Fluid was clear cord clamped and cut cord gases obtained cord blood obtained baby handed to pediatrics. Placenta removed was removed with traction we ensure the entire placenta was removed with a moist lap sponge into the uterus Uterus was then exteriorized. IV Pitocin had been started by anesthesia tone improved there were no extensions the uterus was then closed using 0 Monocryl in a 2 layer closure the first layer closed in a running locked fashion from left to right and then a second closure from left to right in a running nonlocked fashion. At this stage hemostasis was excellent. Tubal ligation was performed first on the right side by identifying the fimbriated end of the right-sided fallopian tube grasped with a Tona and then using the LigaSure to coagulate the attachments to the mesosalpinx care was taken for hemostasis and once the tube was carried to the isthmic end it was transected with the LigaSure sent to pathology same process on the left side identical should be noted when the uterus was placed back in the peritoneal cavity that we inspected both tubal resection areas and they were hemostatic Uterus was placed back in the peritoneal cavity with suction irrigation out and inspection of the uterus at this stage revealed excellent hemostasis Retractors were removed urine color was clear at this stage of the case we inspected the rectus muscles they were hemostatic fascia was closed with 0 Vicryl subcutaneous fat was irrigated and closed with 3-0 Vicryl skin closed with 4-0 subcuticular Monocryl I attest to the content of the Intraoperative Record and any orders documented therein. Any exceptions are noted below. OB Procedure Charges [id number] Add on Tubal for C/S
[2023-11-10] MEDS ORDERED: BENZOCAINE 20% SPRY 85 APPLN/85 GM CAN EXT PRN (15:33)
[2023-11-10] MEDS ORDERED: DIPHTHER/TETAN/PERTUS Vaccine (Tdap, Adol/Adult) 0.5mL IM ONE (15:33)
[2023-11-10] MEDS ORDERED: OXYTOCIN 10 UNITS in LACTATED RINGER'S 1,000 ML IV SCH (15:33)
[2023-11-10] MEDS ORDERED: HYDROCORTISONE ACETATE 25 MG SUPP PR PRN (15:33)
[2023-11-10] MEDS: ONDANSETRON INJ 2 MG/ML 2 ML VIAL IV PRN (15:48)
--- NOTE | 2023-11-10 16:04 | Anesthesiology Progress Note ---
Date of Service November 10, 2023 Anesthesia Post Procedure Vital Signs Vital Signs: Temp Pulse Resp BP Pulse Ox 11/10/23 15:58 67 99 11/10/23 15:54 64 108/58 L 11/10/23 15:53 56 L 98 11/10/23 15:48 61 100 11/10/23 15:46 58 L 109/55 L 11/10/23 15:43 66 100 11/10/23 15:38 70 100 11/10/23 15:36 80 88 L 11/10/23 15:34 58 L 119/58 L 11/10/23 15:33 36.9 C 20 11/10/23 15:33 67 100 11/10/23 11:32 62 120/75 11/10/23 09:38 36.4 C L 20 11/10/23 09:23 64 129/90 Transfer of Care Handoff Completed per policy Notes Mental Status: alert / awake / arousable Patient Amnestic to Procedure: No Nausea / Vomiting: adequately controlled Pain: adequately controlled Airway Patency, RR, SpO2: stable & adequate BP & HR: stable & adequate Hydration State: stable & adequate Neuraxial Anesthesia: was administered and sensory block is resolving Anesthetic Complications: no major complications apparent and Pt Satisfied with anesthetic care
[2023-11-10] MEDS: OXYTOCIN 20 UNITS in LACTATED RINGER'S 1,000 ML IV SCH (18:07)
[2023-11-10] MEDS: SIMETHICONE 80 MG CHEW PO SCH (18:17)
[2023-11-10] MEDS: PROMETHAZINE HCL 6.25 MG in SODIUM CHLORIDE 0.9% 50 ML IV PRN (20:37)
[2023-11-10] MEDS: KETOROLAC 30 MG/ML VIAL IV PRN (21:41)
[2023-11-10] MEDS: DOCUSATE SODIUM 100 MG CAP PO SCH (21:46)
[2023-11-11] MEDS: FLUCONAZOLE 50 MG TAB PO ONE (04:38)
[2023-11-11] MEDS: LEVOTHYROXINE SODIUM 50 MCG TABLET PO SCH (05:22)
--- NOTE | 2023-11-11 06:22 | Obstetrical Progress Note ---
Date of Service November 11, 2023 Assessment & Plan (1) Encounter for care and examination after delivery: Plan 38 y/o POD#1 s/p Doing well this morning Vital signs reviewed Rubella immune, A+ Pain control Encourage ambulation Encourage breast feeding Continue post care Admission and Anticipated Discharge Date Admission Date: November 10, 2023 Supervising Physician Co-Signing Physician Notes Resident Physician Supervision Note: I interviewed and examined the patient. Discussed with Beth Dupont and agree with findings and plan as documented in the note. Any exceptions or clarifications are listed here: [None] Documented By: America Mackenzie MD, FACOG Subjective 38 yo post- day 1 s/p c -section Ambulation: ambulating normally Voiding: no voiding problems Passing Gas:: Yes Diet Tolerance:: regular diet Lochia:: Small Feeding Type:breast feeding Current Pain Level: moderate Resting comfortably this AM in NAD. Denies GRAVES, CP, SOB, N/V/D, LE pain/swelling. Review of Systems Review of Systems: as per hpi Physical Exam Physical Exam: General: patient resting comfortably, NAD, non-toxic in appearance, AA&O x 4, answers questions appropriately. Heart: +S1/S2, regular, no m/r/g Lungs: equal air entry bilaterally, no rales/rhonchi/wheezes Abd: +BS, soft, NT/ND, uterine fundus firm at umbilicus, incision clean, dry, no signs of bleeding Ext: warm, no clubbing/cyanosis or edema, Brian's neg. Neuro: nonfocal, patient AA&O x 4, speech intact, no facial droop, moving all extremities on command. Results & Data Vital Signs (Past 12 Hours) Vital Signs Temp Pulse Resp BP Pulse Ox O2 Del Method 11/11/23 05:16 18 98 11/11/23 04:05 18 99 11/11/23 03:03 18 96 11/11/23 02:15 16 99 11/11/23 01:15 18 97 11/11/23 00:15 18 99 11/11/23 00:15 36.7 C 73 18 113/69 98 Room Air 11/10/23 23:00 18 97 11/10/23 22:00 20 99 11/10/23 21:00 18 98 11/10/23 21:00 Room Air 11/10/23 21:00 36.5 C 64 18 115/76 98 Room Air 11/10/23 20:09 18 99 11/10/23 19:30 18 100 Resident Activity Tracking Resident Involvement: Resident Care Provided Care Provided: OB Delivery
[2023-11-11] MEDS ORDERED: ONDANSETRON INJ 2 MG/ML 2 ML VIAL IV PRN (06:46)
[2023-11-11] MEDS ORDERED: PROMETHAZINE HCL 25 MG in SODIUM CHLORIDE 0.9% 50 ML IV PRN (06:46)
[2023-11-11] MEDS ORDERED: diphenhydrAMINE 50 MG/ML VIAL IV PRN (06:46)
[2023-11-11] MEDS ORDERED: KETOROLAC 30 MG/ML VIAL IV PRN (06:46)
[2023-11-11] MEDS ORDERED: oxyCODONE/ACETAMINOPHEN 5mg/325mg TAB PO PRN (06:46)
[2023-11-11 06:47] LABS: Basophils # (auto) 0.02 K/uL (0.00-0.20); Basophils % (auto) 0.2 %; Eosinophils # (auto) 0.03 K/uL (0.00-0.50); Eosinophils % (auto) 0.2 %; Hematocrit (blood only) 30.8 % (37.0-47.0); Hemoglobin 10.4 g/dl (12.0-16.0); Immature Granulocytes # (auto) 0.05 K/uL (0.01-0.20); Immature Granulocytes % (auto) 0.4 %; Lymphocytes # (auto) 1.97 K/uL (1.20-3.40); Lymphocytes % (auto) 15.4 %; Mean Corpuscular Hemoglobin 31.2 pg (25.0-34.0); Mean Corpuscular Hgb Conc 33.8 g/dL (32.0-36.0); Mean Corpuscular Volume 92.5 fL (80.0-100.0); Mean Platelet Volume 11.5 fL (9.4-12.4); Monocytes # (auto) 1.27 K/uL (0.11-0.59); Monocytes % (auto) 9.9 %; Neutrophils # (auto) 9.45 K/uL (1.40-6.50); Neutrophils % (auto) 73.9 %; Platelet Count 188 K/uL (130-400); RDW Coefficient of Variation 13.4 % (11.5-14.5); RDW Standard Deviation 45.2 fL (36.4-46.3); Red Blood Count 3.33 M/uL (4.20-5.40); White Blood Count 12.79 K/ul (4.8-10.8)
[2023-11-11] MEDS: PRENATAL VITAMIN 1 TAB PO SCH (07:55)
[2023-11-11] MEDS: FERROUS SULFATE 325 MG TAB PO SCH (07:56)
[2023-11-11] MEDS: PANTOprazole 40 MG TAB PO SCH (08:01)
[2023-11-11] MEDS: diphenhydrAMINE Capsule 25 MG CAP PO PRN (08:12)
[2023-11-11] MEDS: IBUPROFEN 600 MG TAB PO PRN (13:36)
[2023-11-11] MEDS: SENNA 8.6 MG TAB PO PRN (20:35)
[2023-11-11] MEDS: bisacodyL 5 MG TABEC PO SCH (20:35)
--- NOTE | 2023-11-12 07:53 | Obstetrical Progress Note ---
Date of Service November 12, 2023 Assessment & Plan (1) Encounter for care and examination after delivery: 38 yo POD 2from rltcs/btl, doing well -Meeting all pp milestones -Rh+/rubella immune/ -f/u 6 weeks for appt, dc home Subjective Ambulation: ambulating normally Voiding: no voiding problems Passing Gas:: Yes Diet Tolerance:: regular diet Lochia:: Small Feeding Type:: breast feeding Pain well managed with medication Review of Systems Denies fevers, chills, n/v, GRAVES, CP, SOB Physical Exam Constitutional WD/WN, vitals as above no acute distress Respiratory normal respiratory effort, lungs clear to auscultation Cardiovascular RRR, no murmur, no edema Gastrointestinal (Abdomen) Percussion/Palpation: abdomen soft; abdomen nontender fundus firm at umbilicus and NT, incision c/d/i Musculoskeletal BLE symmetric, nonerythematous, nontender Results & Data Vital Signs (Past 12 Hours) Vital Signs Temp Pulse Resp BP Pulse Ox O2 Del Method 11/12/23 07:47 97.9 F 64 16 109/70 11/11/23 23:35 97.9 F 67 16 106/67 96 Room Air 11/11/23 20:05 98.1 F 69 16 109/74 99 Room Air
[2023-11-12] MEDS: MAGNESIUM HYDROXIDE SUSP 30 ML UDC PO PRN (08:10)
[2023-11-12 08:20] LABS: Hemoglobin 10.1 g/dl (12.0-16.0)
[2023-11-12] MEDS ORDERED: bisacodyL 10 MG SUPP PR PRN (15:24)
== END 2023-11-12 12:50 | disposition home or self-care (01) | DRG 785 ==
LOC: 4S1 09:00 → EDSTATUS 10:05 → 4E2 18:30